=== PATIENT | male | born 1970 ===

== ENCOUNTER 2020-03-30 19:19 | Observation (INO) | payer MEDICARE, OTHER ==
[2020-03-30] MEDS ORDERED: ACETAMINOPHEN TAB 325 MG TAB PO PRN (21:57)
[2020-03-31] MEDS: DEXTROSE 5%-0.45% NACL 1,000 ML IV SCH ×2 (02:09→08:52)
[2020-03-31] MEDS ORDERED: LEVOTHYROXINE 50 MCG TAB PO SCH ×2 (06:30→09:00)
[2020-03-31] MEDS ORDERED: LEVOTHYROXINE 112 MCG TAB PO SCH (06:30)
[2020-03-31] MEDS ORDERED: HYDROcodone/APAP 10-325MG 1 EACH TAB PO PRN (08:02)
[2020-03-31] MEDS ORDERED: ALBUTEROL HFA INHALER INHALATION PRN (08:02)
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
--- NOTE | 2020-03-31 08:51 | P.DS ---
Providers Date of admission: 03/30/20 20:56 Attending physician: Elias Sanchez MD Consults: 03/30/20 21:54 Consult Physician Routine Consulting Provider: Gavino Bonner Consult Reason/Comments: Suicidal Ideation/Overdose Do you want consulting provider notified?: Yes, Notify in am Placement Type Exists?: Yes Primary care physician: Elias Sanchez MD Hospital Course: Please up at him [facility] for further details. Patient is willing to go to psychiatric floor if psychiatrist believes patient will need inpatient psychiatric admission although he prefers to go home. If cleared by psychiatry patient will be discharged home or else patient is willing to voluntarily go to psychiatric floor if needed. Plan - Discharge Summary Discharge Rx Participant: No New Discharge Prescriptions: Continue Albuterol Inhaler [Ventolin Hfa Inhaler] 2 puff INHALATION RT-Q4H PRN PRN Reason: Shortness Of Breath HYDROcodone/APAP 10-325MG [[place] 10-325] 1 tab PO Q6H PRN PRN Reason: Pain Fluticasone/Salmeterol [Advair 500-50 Diskus] 1 puff INHALATION RT-BID EPINEPHrine (Auto Inject) [Epipen] 0.3 mg SQ ONCE PRN PRN Reason: Anaphylaxis QUEtiapine [SEROquel] 50 mg PO HS Levothyroxine Sodium [Synthroid] 50 mcg PO DAILY Discharge Medication List Albuterol Inhaler [Ventolin Hfa Inhaler] 2 puff INHALATION RT-Q4H PRN 03/30/20 [History] EPINEPHrine (Auto Inject) [Epipen] 0.3 mg SQ ONCE PRN 03/30/20 [History] Fluticasone/Salmeterol [Advair 500-50 Diskus] 1 puff INHALATION RT-BID 03/30/20 [History] HYDROcodone/APAP 10-325MG [[place] 10-325] 1 tab PO Q6H PRN 03/30/20 [History] Levothyroxine Sodium [Synthroid] 50 mcg PO DAILY 03/30/20 [History] QUEtiapine [SEROquel] 50 mg PO HS 03/30/20 [History] Discharge Disposition: HOME SELF-CARE
[2020-03-31] MEDS ORDERED: MELOXICAM 7.5 MG TAB PO SCH (09:00)
[2020-03-31 10:35] LABS: African American GFR (CKD) 90.9 (60.0-200.0); BUN/Creat Ratio 9.09 Ratio (12.00-20.00); Calcium 8.5 mg/dL (8.7-10.3); Non-African American GFR(CKD) 78.4 (60.0-200.0); Potassium 4.4 mmol/L (3.5-5.5)
[2020-03-31] MEDS ORDERED: SYMBICORT 160-4.5 MCG INHALER INHALATION SCH ×2 (10:45→20:00)
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
[2020-03-31 13:48] VITALS: BP 149/82; PULSE 68; RESP 20; TEMP 98.4
== END 2020-03-31 14:29 | disposition home or self-care (01) ==
LOC: INTOOBSV 20:56 → 4SSUR 20:56 → UNDODISIN 03-31 14:29
PROVIDERS: ADMIT Internal Medicine; ATTEND Internal Medicine
DX: T43.592A Poisoning by other antipsychotics and neuroleptics, intentional self-harm, initial encounter (principal); E07.9 Disorder of thyroid, unspecified; J45.909 Unspecified asthma, uncomplicated; F32.9 Major depressive disorder, single episode, unspecified; F41.9 Anxiety disorder, unspecified; F12.90 Cannabis use, unspecified, uncomplicated; E66.9 Obesity, unspecified; Z68.41 Body mass index [BMI] 40.0-44.9, adult; Z79.890 Hormone replacement therapy; Z79.891 Long term (current) use of opiate analgesic; Z79.51 Long term (current) use of inhaled steroids; Z87.891 Personal history of nicotine dependence
CPT/HCPCS: 93005; 80048; G0378 ×2; G0379

== ENCOUNTER 2020-11-09 19:13 | Emergency (ER) | payer MEDICARE ==
[2020-11-09 19:56] VITALS: RESP 18; TEMP 98.8
[2020-11-09] MEDS ORDERED: SODIUM CHLORIDE 0.9% 1,000 ML IV STA (20:13)
[2020-11-09] MEDS ORDERED: ONDANSETRON 4 MG/2 ML VIAL IVP STA (20:13)
[2020-11-09] MEDS ORDERED: MORPHINE SULFATE 4 MG/ML SYRINGE IV STA (20:13)
--- NOTE | 2020-11-09 20:17 | ED ---
Abdominal Pain HPI - General Chief Complaint: Abdominal Pain Stated Complaint: Diverticulitis Flare Up Time Seen by Provider: 11/09/20 20:07 Source: patient, family Mode of arrival: ambulatory Limitations: no limitations - History of Present Illness Initial Comments: 50 year-old male patient presents to the emergency department for evaluation of left sided abdominal pain. Patient has history of diverticulitis and states his symptoms feel similar. Pain started about three days ago and has been worsening. He reports diarrhea. Denies any hematochezia or melena. Denies hematuria, dysuria, urinary frequency, or urinary urgency. Denies fever or chills. States at times in the pain is at its worse he does have some sweating. Denies radiation of the pain through to his back. Denies nausea or vomiting. Denies history of abdominal surgery. Patient denies any recent rash, cough, shortness of breath, chest pain, back pain, numbness, tingling, dizziness, weakness, headache, visual changes, or any other complaints. Last colonoscopy was 6 years ago. - Related Data Home Medications Medication Instructions Recorded Confirmed Albuterol Inhaler [Ventolin Hfa 2 puff INHALATION RT-Q4H PRN 03/30/20 03/30/20 Inhaler] EPINEPHrine (Auto Inject) [Epipen] 0.3 mg SQ ONCE PRN 03/30/20 03/30/20 Fluticasone/Salmeterol [Advair 1 puff INHALATION RT-BID 03/30/20 03/30/20 500-50 Diskus] HYDROcodone/APAP 10-325MG [[place] 1 tab PO Q6H PRN 03/30/20 03/30/20 10-325] Levothyroxine Sodium [Synthroid] 50 mcg PO DAILY 03/30/20 03/30/20 QUEtiapine [SEROquel] 50 mg PO HS 03/30/20 03/30/20 Allergies Allergy/AdvReac Type Severity Reaction Status Date / Time No Known Allergies Allergy Verified 11/09/20 19:56 Review of Systems ROS Statement: Those systems with pertinent positive or pertinent negative responses have been documented in the HPI. ROS Other: All systems not noted in ROS Statement are negative. Past Medical History Past Medical History: Asthma History of Any Multi-Drug Resistant Organisms: None Reported Additional Past Surgical History / Comment(s): colonscopy Past Anesthesia/Blood Transfusion Reactions: No Reported Reaction Past Psychological History: Anxiety, Depression Smoking Status: Current some day smoker Past Alcohol Use History: Occasional Past Drug Use History: Marijuana General Exam Limitations: no limitations General appearance: alert, in no apparent distress, other (This is a well-developed, well-nourished adult male patient in no acute distress. Vital signs upon presentation are temperature 98.8F, pulse 100, respirations 18, blood pressure 123/80, pulse ox 95% on room air.) Eye exam: Present: normal appearance, PERRL, EOMI. Absent: scleral icterus, conjunctival injection, periorbital swelling ENT exam: Present: normal exam, normal oropharynx, mucous membranes moist Respiratory exam: Present: normal lung sounds bilaterally. Absent: respiratory distress, wheezes, rales, rhonchi, stridor Cardiovascular Exam: Present: regular rate, normal rhythm, normal heart sounds. Absent: systolic murmur, diastolic murmur, rubs, gallop, clicks GI/Abdominal exam: Present: soft, tenderness (Left upper quadrant, left lower quadrant, left lateral abdomen), normal bowel sounds. Absent: distended, guarding, rebound, rigid Neurological exam: Present: alert, oriented X3, CN II-XII intact Psychiatric exam: Present: normal affect, normal mood Skin exam: Present: warm, dry, intact, normal color. Absent: rash Course Vital Signs 11/09/20 11/09/20 19:51 20:56 Temperature 98.8 F Pulse Rate 100 73 Respiratory 18 18 Rate Blood Pressure 123/80 136/76 O2 Sat by Pulse 95 96 Oximetry Medical Decision Making - Medical Decision Making 50-year-old male patient presented to the emergency department today for evaluation of left-sided abdominal pain. Physical examination did reveal left upper quadrant left lower quadrant tenderness. Labs reviewed and were unremarkable. White blood cell count was normal. He is afebrile, vital signs. Patient was given IV fluids, IV pain medication. Upon reevaluation is resting comfortably, states the pain is completely resolved. CT abdomen and pelvis was obtained and was normal. Did show dilated jejunal loop, do we discussed this finding. He'll be discharged follow-up with his primary care physician for recheck in 1-2 days. Return parameters discussed in detail. He verbalizes understanding and agrees with this plan. Case discussed my attending Dr. Sharif. - Lab Data Result diagrams: 11/09/20 20:49 11/09/20 20:49 Lab Results 11/09/20 11/09/20 11/09/20 Range/Units 20:49 20:49 20:49 WBC 5.4 (3.8-10.6) k/uL RBC 4.59 (4.30-5.90) m/uL Hgb 14.9 (13.0-17.5) gm/dL Hct 40.7 (39.0-53.0) % MCV 88.7 (80.0-100.0) fL MCH 32.4 (25.0-35.0) pg MCHC 36.6 (31.0-37.0) g/dL RDW 13.7 (11.5-15.5) % Plt Count 144 L (150-450) k/uL MPV 8.2 Neutrophils % 55 % Lymphocytes % 35 % Monocytes % 6 % Eosinophils % 1 % Basophils % 1 % Neutrophils # 2.9 (1.3-7.7) k/uL Lymphocytes # 1.9 (1.0-4.8) k/uL Monocytes # 0.3 (0-1.0) k/uL Eosinophils # 0.1 (0-0.7) k/uL Basophils # 0.0 (0-0.2) k/uL Hyperchromasia Moderate Sodium 139 (137-145) mmol/L Potassium 4.4 (3.5-5.1) mmol/L Chloride 104 (98-107) mmol/L Carbon Dioxide 27 (22-30) mmol/L Anion Gap 8 mmol/L BUN 20 (9-20) mg/dL Creatinine 1.15 (0.66-1.25) mg/dL Est GFR (CKD-EPI)AfAm 86 (>60 ml/min/1.73 sqM) Est GFR (CKD-EPI)NonAf 74 (>60 ml/min/1.73 sqM) Glucose 118 H (74-99) mg/dL Plasma Lactic Acid Carmelo (0.7-2.0) mmol/L Calcium 9.2 (8.4-10.2) mg/dL Total Bilirubin 0.5 (0.2-1.3) mg/dL AST 36 (17-59) U/L ALT 40 (4-49) U/L Alkaline Phosphatase 59 (38-126) U/L Total Protein 6.6 (6.3-8.2) g/dL Albumin 4.1 (3.5-5.0) g/dL Lipase 91 (23-300) U/L Urine Color Yellow Urine Appearance Clear (Clear) Urine pH 6.0 (5.0-8.0) Ur Specific [place] 1.023 (1.001-1.035) Urine Protein Negative (Negative) Urine Glucose (UA) Negative (Negative) Urine Ketones Negative (Negative) Urine Blood Negative (Negative) Urine Nitrite Negative (Negative) Urine Bilirubin Negative (Negative) Urine Urobilinogen <2.0 (<2.0) mg/dL Ur Leukocyte Esterase Negative (Negative) 11/09/20 Range/Units 20:49 WBC (3.8-10.6) k/uL RBC (4.30-5.90) m/uL Hgb (13.0-17.5) gm/dL Hct (39.0-53.0) % MCV (80.0-100.0) fL MCH (25.0-35.0) pg MCHC (31.0-37.0) g/dL RDW (11.5-15.5) % Plt Count (150-450) k/uL MPV Neutrophils % % Lymphocytes % % Monocytes % % Eosinophils % % Basophils % % Neutrophils # (1.3-7.7) k/uL Lymphocytes # (1.0-4.8) k/uL Monocytes # (0-1.0) k/uL Eosinophils # (0-0.7) k/uL Basophils # (0-0.2) k/uL Hyperchromasia Sodium (137-145) mmol/L Potassium (3.5-5.1) mmol/L Chloride (98-107) mmol/L Carbon Dioxide (22-30) mmol/L Anion Gap mmol/L BUN (9-20) mg/dL Creatinine (0.66-1.25) mg/dL Est GFR (CKD-EPI)AfAm (>60 ml/min/1.73 sqM) Est GFR (CKD-EPI)NonAf (>60 ml/min/1.73 sqM) Glucose (74-99) mg/dL Plasma Lactic Acid Carmelo 1.1 (0.7-2.0) mmol/L Calcium (8.4-10.2) mg/dL Total Bilirubin (0.2-1.3) mg/dL AST (17-59) U/L ALT (4-49) U/L Alkaline Phosphatase (38-126) U/L Total Protein (6.3-8.2) g/dL Albumin (3.5-5.0) g/dL Lipase (23-300) U/L Urine Color Urine Appearance (Clear) Urine pH (5.0-8.0) Ur Specific [place] (1.001-1.035) Urine Protein (Negative) Urine Glucose (UA) (Negative) Urine Ketones (Negative) Urine Blood (Negative) Urine Nitrite (Negative) Urine Bilirubin (Negative) Urine Urobilinogen (<2.0) mg/dL Ur Leukocyte Esterase (Negative) - Radiology Data Radiology results: report reviewed, image reviewed CT abdomen and pelvis with contrast was obtained. Report was reviewed in its entirety. Impression by Dr. Jurgen Contreras shows no definite acute process. There was mildly dilated jejunal loops in the left upper quadrant measuring 4 cm caliber. Disposition Clinical Impression: Abdominal pain Disposition: HOME SELF-CARE Condition: Good Instructions (If sedation given, give patient instructions): Abdominal Pain (ED), Ileus (ED) Additional Instructions: Start with plan to using today just diet. Take pain medication as directed. Follow-up with the primary care physician for recheck in 1-2 days. Return for any new, worsening, or concerning symptoms. Is patient prescribed a controlled substance at d/c from ED?: No Referrals: Juan Barrera DO [Primary Care Provider] - 1-2 days Time of Disposition: 22:10
[2020-11-09 21:04] LABS: Basophils % (A) 1 %; Eosinophils # (A) 0.1 k/uL (0-0.7); Eosinophils % (A) 1 %; HCT 40.7 % (39.0-53.0); HGB 14.9 gm/dL (13.0-17.5); Hyperchromasia Moderate; Lymphocytes # (A) 1.9 k/uL (1.0-4.8); Lymphocytes % (A) 35 %; MCH 32.4 pg (25.0-35.0); MCHC 36.6 g/dL (31.0-37.0); MCV 88.7 fL (80.0-100.0); Mean Platelet Volume 8.2; Monocytes # (A) 0.3 k/uL (0-1.0); Monocytes % (A) 6 %; Neutrophils # (A) 2.9 k/uL (1.3-7.7); Neutrophils % (A) 55 %; Platelet Count 144 k/uL (150-450); RBC 4.59 m/uL (4.30-5.90); RDW 13.7 % (11.5-15.5); WBC 5.4 k/uL (3.8-10.6)
[2020-11-09 21:06] LABS: Appearance,Urine Clear (Clear); Bilirubin,Urine Negative (Negative); Blood,Urine Negative (Negative); Color,Urine Yellow; Glucose,Urine (UA) Negative (Negative); Ketones,Urine Negative (Negative); Leukocyte Esterase,Urine Negative (Negative); Nitrite,Urine Negative (Negative); Protein,Urine Negative (Negative); Specific Gravity,Urine 1.023 (1.001-1.035); Urobilinogen,Urine <2.0 mg/dL (<2.0)
[2020-11-09 21:15] LABS: Albumin 4.1 g/dL (3.5-5.0); Calcium 9.2 mg/dL (8.4-10.2); Potassium 4.4 mmol/L (3.5-5.1); Total Bilirubin 0.5 mg/dL (0.2-1.3); Total Protein 6.6 g/dL (6.3-8.2)
[2020-11-09 21:47] VITALS: BP 136/76; PULSE 73
--- NOTE | 2020-11-09 21:55 | CT ---
EXAMINATION TYPE: CT abdomen pelvis w con DATE OF EXAM: 11/09/2020 COMPARISON: None HISTORY: Left sided pain, history of diverticulitis. CT DLP: 3199.4 mGycm Automated exposure control for dose reduction was used. TECHNIQUE: Helical acquisition of images was performed from the lung bases through the pelvis. CONTRAST: Performed without Oral Contrast and with IV Contrast, patient injected with 100 mL of Isovu e 300. FINDINGS: LUNG BASES: No significant abnormality is appreciated. LIVER/GB: No significant abnormality is appreciated. PANCREAS: No significant abnormality is seen. SPLEEN: No significant abnormality is seen. ADRENALS: No significant abnormality is seen. KIDNEYS: No significant abnormality is seen. FREE AIR: No free air is visualized. RETROPERITONEAL ADENOPATHY: None visualized REPRODUCTIVE ORGANS: No significant abnormality is seen URINARY BLADDER: No significant abnormality is seen. PELVIC ADENOPATHY: None visualized. OSSEOUS STRUCTURES: No significant abnormality is seen. BOWEL: There is a nonspecific mildly-dilated jejunal loop in the left upper quadrant, measuring 4 cm caliber (top normal 3 cm caliber); this finding is of doubtful clinical significance. Specifically, no evidence for diverticulitis. OTHER: No acute vascular findings. IMPRESSION: NO DEFINITE ACUTE PROCESS.
[2020-11-09] MEDS ORDERED: ACET/COD 300 MG/30 MG STARTER PACK 6 TAB BTL PO STA (22:11)
== END 2020-11-09 22:38 | disposition home or self-care (01) ==
LOC: EC 19:13
DX: R10.12 Left upper quadrant pain (principal); R10.32 Left lower quadrant pain; J45.909 Unspecified asthma, uncomplicated; F32.9 Major depressive disorder, single episode, unspecified; F41.9 Anxiety disorder, unspecified; F17.200 Nicotine dependence, unspecified, uncomplicated; F12.90 Cannabis use, unspecified, uncomplicated; Z79.51 Long term (current) use of inhaled steroids; Z79.890 Hormone replacement therapy; Z79.899 Other long term (current) drug therapy
CPT/HCPCS: 96374 ×2; 96375 ×2; 96361 ×3; 99284 ×2; 36415; 80053; 83605; 83690; 85025; 81003; 74177; J2270; J2405; Q9967